=== PATIENT | male | born 1955 | race Caucasian/White ===

== ENCOUNTER 2016-04-05 10:58 | Observation (INO) | payer MEDICARE, MEDICAID ==
[~2016-04-05] VITALS: Ht 165.1 cm; Wt 64.6 kg
[~2016-04-05 10:58] MED LIST: ACET-66 PO; AMLO-512 PO; ASPI-825 PO; CARV12 PO; DiphenhydrAMINE HCL 50 MG/ML VIAL IVP ONE; FentaNYL CITRATE-PF 100 MCG/2 ML VIAL IVP ONE; LIDOCAINE HCL/PF 2% 5 ML VIAL IM ONE; LISI10TA7 PO; OMEP20 PO; PROPOFOL 1% 20 ML VIAL IVP ONE; SIMV20TA6 PO; TEMA30CA PO
[2016-04-05] MEDS ORDERED: SODIUM CHLORIDE 0.9% 1,000 ML IV ONE ×2 (11:08→11:30)
[2016-04-05] MEDS ORDERED: TIMO.5OS OU (11:47)
[2016-04-05] MEDS ORDERED: BIMA12.5OS OU (11:47)
[2016-04-05] MEDS ORDERED: LOPE2 PO (11:50)
[2016-04-05 12:15] LABS: BASOPHILS % (AUTO) 0.6 % (0.0-2.0); EOSINOPHILS % (AUTO) 6.6 % (1.0-6.0); HEMATOCRIT 32.9 % (41-53); HEMOGLOBIN 11.1 g/dL (13.5-17.5); LYMPHOCYTES # (AUTO) 0.5 K/uL (1.0-4.8); LYMPHOCYTES % (AUTO) 9.7 % (22.0-44.0); MEAN CORPUSCULAR HEMOGLOBIN 31.8 pg (26.0-34.0); MEAN CORPUSCULAR HGB CONC 33.8 G/dL (31.0-37.0); MEAN CORPUSCULAR VOLUME 94 fL (80-100); MONOCYTES # (AUTO) 0.4 K/uL (0.1-1.0); MONOCYTES % (AUTO) 9.2 % (2.0-9.0); NEUTROPHILS # (AUTO) 3.5 K/uL (1.8-7.7); NEUTROPHILS % (AUTO) 73.9 % (40.0-70.0); PLATELET COUNT (AUTO) 99 K/uL (150-450); RED CELL DISTRIBUTION WIDTH 16.2 % (11.5-14.5); WHITE BLOOD COUNT (AUTO) 4.7 K/uL (4.5-11.0)
[2016-04-05 12:27] LABS: CALCIUM, TOTAL 8.3 mg/dL (8.8-10.5); CREATININE 4.67 mg/dL (0.60-1.30); MAGNESIUM 2.3 mg/dL (1.80-2.40); POTASSIUM 3.6 mmol/L (3.5-5.1)
[2016-04-05 12:28] LABS: INR 1.4 (0.9-1.1); PROTHROMBIN TIME 14.3 SEC (9.4-11.6)
[2016-04-05] MEDS ORDERED: LIDOCAINE HCL/PF 1% 30 ML VIAL ONE ×2 (14:43→16:11)
[2016-04-05] MEDS ORDERED: SODIUM BICARBONATE 50 MEQ/50 ML VIAL ONE (14:43)
[2016-04-05 15:02] VITALS: BP 118/55
[2016-04-05] MEDS ORDERED: DESMOPRESSIN ACETATE 20 MCG in SODIUM CHLORIDE 0.9% 50 ML IV ONE (16:00)
[2016-04-05] MEDS ORDERED: BUPIVACAINE LIPOSOME/PF 1.3%-13.3MG/ML SUSPENSION 20 ML VIAL INJ ONE (16:15)
[2016-04-05] MEDS ORDERED: LIDOCAINE 1% 30 ML/SOD BICARB 8.4% 4 ML SQ ONE (16:15)
[2016-04-05] MEDS ORDERED: LISI-662 PO (16:24)
[2016-04-05] MEDS ORDERED: ACETAMINOPHEN 325 MG TABLET PO PRN (17:15)
[2016-04-05] MEDS ORDERED: 0.9% SODIUM CHLORIDE 10 ML SYRINGE IVP PRN (17:15)
[2016-04-05] MEDS ORDERED: HYDROCODONE/ACETAMINOPHEN 5-325 MG TABLET PO PRN (17:15)
[2016-04-05 17:21] VITALS: BP 135/67
[2016-04-05 18:23] VITALS: BP 135/60
[2016-04-05 19:10] VITALS: BP 118/78
[2016-04-05] MEDS ORDERED: LISINOPRIL 20 MG TABLET PO SCH (21:00)
[2016-04-05] MEDS: CARVEDILOL 12.5 MG TABLET PO SCH (21:00)
[2016-04-05] MEDS ORDERED: SODIUM CHLORIDE 0.9% 100 ML ONE (21:09)
[2016-04-05] MEDS: CeFAZolin 1 GM/DEXTROSE 50 ML IV SCH (21:18)
[2016-04-06 00:07] VITALS: BP 121/58
[2016-04-06] MEDS: CeFAZolin 1 GM/DEXTROSE 50 ML IV SCH ×2 (03:47→09:33)
[2016-04-06 04:13] VITALS: BP 140/72
[2016-04-06 06:05] LABS: EOSINOPHILS % (AUTO) 5.4 % (1.0-6.0); HEMATOCRIT 30.7 % (41-53); HEMOGLOBIN 10.2 g/dL (13.5-17.5); LYMPHOCYTES # (AUTO) 0.5 K/uL (1.0-4.8); LYMPHOCYTES % (AUTO) 9.8 % (22.0-44.0); MEAN CORPUSCULAR HEMOGLOBIN 31.5 pg (26.0-34.0); MEAN CORPUSCULAR HGB CONC 33.1 G/dL (31.0-37.0); MEAN CORPUSCULAR VOLUME 95 fL (80-100); MONOCYTES # (AUTO) 0.5 K/uL (0.1-1.0); MONOCYTES % (AUTO) 9.6 % (2.0-9.0); NEUTROPHILS # (AUTO) 3.5 K/uL (1.8-7.7); NEUTROPHILS % (AUTO) 74.2 % (40.0-70.0); PLATELET COUNT (AUTO) 93 K/uL (150-450); RED BLOOD CELL COUNT(AUTO) 3.23 MIL/uL (4.50-5.90); WHITE BLOOD COUNT (AUTO) 4.7 K/uL (4.5-11.0)
[2016-04-06 06:27] LABS: CALCIUM, TOTAL 7.9 mg/dL (8.8-10.5); CREATININE 6.06 mg/dL (0.60-1.30); POTASSIUM 3.9 mmol/L (3.5-5.1)
[2016-04-06 07:39] VITALS: BP 172/67
[2016-04-06] MEDS: CARVEDILOL 12.5 MG TABLET PO SCH (08:25)
[2016-04-06] MEDS ORDERED: ASPIRIN 81 MG CHEWABLE TABLET PO SCH (09:00)
[2016-04-06] MEDS ORDERED: OMEPRAZOLE 20 MG CAPSULE PO SCH (09:00)
[2016-04-06] MEDS ORDERED: SIMVASTATIN 20 MG TABLET PO SCH (09:00)
[2016-04-06] MEDS ORDERED: VITAMIN B COMP/VIT C/FOLIC ACID CAPSULE PO SCH (09:00)
[2016-04-06] MEDS ORDERED: LOPERAMIDE HCL 2 MG CAPSULE PO PRN (10:45)
[2016-04-06 11:20] VITALS: BP 146/67
[2016-04-06] MEDS ORDERED: TYL3LL PO (14:39)
== END 2016-04-06 16:00 | disposition home or self-care (01) ==
LOC: CATHLAB 10:58 → 5N 10:59 → INTOOBSV 10:59
PROVIDERS: ADMIT Internal Medicine Clinical Cardiac Electrophysiology; ATTEND Internal Medicine Clinical Cardiac Electrophysiology
DX: I50.22 Chronic systolic (congestive) heart failure (principal); I13.2 Hypertensive heart and chronic kidney disease with heart failure and with stage 5 chronic kidney disease, or end stage renal disease; N18.6 End stage renal disease; E11.22 Type 2 diabetes mellitus with diabetic chronic kidney disease; I47.2 Ventricular tachycardia; E78.5 Hyperlipidemia, unspecified; I25.10 Atherosclerotic heart disease of native coronary artery without angina pectoris; Z99.2 Dependence on renal dialysis
CPT/HCPCS: 33249; 36415 ×2; 71010; 71020; 76000; 80048 ×2; 83735; 85025 ×2; 85610; 85730; 86850; 86900; 86901; 86920; 93005; 96365; 96375; C1721; C1892 ×2; C1899; C9290; G0378 ×2; J0690; J1200; J2597; J2704; J3010; J3490 ×3; J7030; J7050 ×2

== ENCOUNTER 2016-04-11 06:06 | Emergency (ER) | payer MEDICARE, MEDICAID ==
[~2016-04-11] VITALS: Ht 167.6 cm; Wt 65.9 kg
[~2016-04-11 06:06] MED LIST changes: -AMLO-512 PO; +BIMA12.5OS OU; -DiphenhydrAMINE HCL 50 MG/ML VIAL IVP ONE; -FentaNYL CITRATE-PF 100 MCG/2 ML VIAL IVP ONE; -LIDOCAINE HCL/PF 2% 5 ML VIAL IM ONE; +LISI-662 PO; -LISI10TA7 PO; +LOPE2 PO; -PROPOFOL 1% 20 ML VIAL IVP ONE; -TEMA30CA PO; +TIMO.5OS OU; +TYL3LL PO
[2016-04-11 06:21] LABS: GLUCOSE,POINT OF CARE 130 MG/DL (70-110)
[2016-04-11] MEDS ORDERED: ACETAMINOPHEN 325 MG TABLET PO ONE (07:00)
[2016-04-11] MEDS ORDERED: MORPHINE SULFATE 4 MG/ML SYRINGE IVP ONE (07:00)
[2016-04-11] MEDS ORDERED: ONDANSETRON HCL 4 MG/2 ML VIAL IVP ONE (07:00)
[2016-04-11 07:02] LABS: BASOPHILS % (AUTO) 0.3 % (0.0-2.0); EOSINOPHILS % (AUTO) 1.2 % (1.0-6.0); HEMATOCRIT 31.7 % (41-53); HEMOGLOBIN 10.4 g/dL (13.5-17.5); LYMPHOCYTES # (AUTO) 0.3 K/uL (1.0-4.8); LYMPHOCYTES % (AUTO) 3.8 % (22.0-44.0); MEAN CORPUSCULAR HEMOGLOBIN 31.7 pg (26.0-34.0); MEAN CORPUSCULAR HGB CONC 32.7 G/dL (31.0-37.0); MEAN CORPUSCULAR VOLUME 97 fL (80-100); MONOCYTES # (AUTO) 0.5 K/uL (0.1-1.0); MONOCYTES % (AUTO) 6.5 % (2.0-9.0); NEUTROPHILS # (AUTO) 6.6 K/uL (1.8-7.7); PLATELET COUNT (AUTO) 89 K/uL (150-450); RED BLOOD CELL COUNT(AUTO) 3.27 MIL/uL (4.50-5.90); RED CELL DISTRIBUTION WIDTH 17.5 % (11.5-14.5); WHITE BLOOD COUNT (AUTO) 7.5 K/uL (4.5-11.0)
[2016-04-11 07:05] LABS: NEUTROPHILS % (AUTO) 88.2 % (40.0-70.0)
[2016-04-11 07:10] LABS: INR 1.3 (0.9-1.1); PROTHROMBIN TIME 13.6 SEC (9.4-11.6)
[2016-04-11] MEDS ORDERED: BARIUM SULFATE 0.1% SUSPENSION 450 ML BOTTLE PO ONE (07:45)
[2016-04-11 08:42] LABS: CALCIUM, TOTAL 7.6 mg/dL (8.8-10.5); CREATININE 8.72 mg/dL (0.60-1.30); POTASSIUM 4.5 mmol/L (3.5-5.1)
[2016-04-11 08:48] LABS: ALBUMIN 3.6 g/dL (3.4-5.0); BILIRUBIN,TOTAL 3.7 mg/dL (0.1-1.0); TOTAL PROTEIN, SERUM 7.2 g/dL (6.4-8.2)
[2016-04-11 09:17] LABS: RBC MORPHOLOGY COMMENT ABNORMAL RBC MORPH
[2016-04-11 13:00] LABS: GLUCOSE,POINT OF CARE 180 MG/DL (70-110)
[2016-04-11] MEDS ORDERED: TYL3B PO (13:22)
[2016-04-11] MEDS ORDERED: PIPERACILLIN SODIUM/TAZOBACTAM 2.25 GM in DEXTROSE 5%-WATER 50 ML IV ONE (13:30)
[2016-04-11] MEDS ORDERED: DEXTROSE 5%-WATER 250 ML BAG IV ONE (13:47)
[2016-04-11] MEDS ORDERED: EPINEPHrine 1:10,000 [1 MG/10 ML] SYRINGE IVP ONE ×11 (13:47→18:45)
[2016-04-11] MEDS ORDERED: SODIUM BICARBONATE [ADULT] 8.4% 50 MEQ/50 ML SYRINGE IVP ONE ×5 (13:47→18:45)
[2016-04-11] MEDS ORDERED: ADENOSINE 3 MG/ML 2 ML VIAL IVP ONE (13:47)
[2016-04-11] MEDS ORDERED: DEXTROSE 5%-WATER 500 ML BAG IV ONE (13:47)
[2016-04-11] MEDS ORDERED: D5W IV ONE (13:47)
[2016-04-11] MEDS ORDERED: AMIODARONE HCL 50 MG/ML 3 ML VIAL IV ONE (13:47)
[2016-04-11] MEDS ORDERED: LIDOCAINE HCL IV ONE (13:47)
[2016-04-11] MEDS ORDERED: 0.9% SODIUM CHLORIDE 250 ML BAG IV ONE (13:47)
[2016-04-11] MEDS ORDERED: DOPamine HCL/D5W 400 MG/250 ML IV BAG IV ONE (13:47)
[2016-04-11 13:59] LABS: CALCIUM, TOTAL 7.5 mg/dL (8.8-10.5); CREATININE 9.18 mg/dL (0.60-1.30); POTASSIUM 4.8 mmol/L (3.5-5.1)
[2016-04-11 14:00] LABS: GLUCOSE,POINT OF CARE 141 MG/DL (70-110)
[2016-04-11 14:05] LABS: BILIRUBIN,TOTAL 3.1 mg/dL (0.1-1.0); TOTAL PROTEIN, SERUM 6.6 g/dL (6.4-8.2)
[2016-04-11] MEDS ORDERED: MIDAZOLAM HCL 100 MG in DEXTROSE 5%-WATER 180 ML IV PRN (14:15)
[2016-04-11] MEDS ORDERED: VANCOMYCIN HCL 1 GM/D5% WATER 200 ML IV ONE (14:30)
[2016-04-11 14:37] LABS: BASOPHILS % (AUTO) 0.1 % (0.0-2.0); EOSINOPHILS % (AUTO) 0.4 % (1.0-6.0); HEMATOCRIT 33.8 % (41-53); HEMOGLOBIN 11.1 g/dL (13.5-17.5); LYMPHOCYTES # (AUTO) 0.9 K/uL (1.0-4.8); LYMPHOCYTES % (AUTO) 10.4 % (22.0-44.0); MEAN CORPUSCULAR HEMOGLOBIN 31.9 pg (26.0-34.0); MEAN CORPUSCULAR HGB CONC 32.8 G/dL (31.0-37.0); MEAN CORPUSCULAR VOLUME 97 fL (80-100); MONOCYTES % (AUTO) 0.3 % (2.0-9.0); NEUTROPHILS # (AUTO) 7.9 K/uL (1.8-7.7); PLATELET COUNT (AUTO) 66 K/uL (150-450); RED BLOOD CELL COUNT(AUTO) 3.47 MIL/uL (4.50-5.90); RED CELL DISTRIBUTION WIDTH 18.2 % (11.5-14.5); WHITE BLOOD COUNT (AUTO) 8.9 K/uL (4.5-11.0)
[2016-04-11] MEDS ORDERED: SODIUM CHLORIDE 0.9% 500 ML IV ONE (14:49)
[2016-04-11] MEDS ORDERED: NOREPINEPHRINE 4 MG/D5%-WATER 250 ML IV ONE (14:51)
[2016-04-11 14:57] LABS: BILIRUBIN,TOTAL 3.2 mg/dL (0.1-1.0); CREATININE 8.41 mg/dL (0.60-1.30); POTASSIUM 4.6 mmol/L (3.5-5.1); TOTAL PROTEIN, SERUM 6.3 g/dL (6.4-8.2)
[2016-04-11 14:58] LABS: NEUTROPHILS % (AUTO) 88.8 % (40.0-70.0); RBC MORPHOLOGY COMMENT ABNORMAL RBC MORPH
[2016-04-11] MEDS ORDERED: ACETAMINOPHEN 325 MG TABLET PO PRN (15:00)
[2016-04-11] MEDS ORDERED: NOREPINEPHRINE 4 MG/D5%-WATER 250 ML IV PRN (15:00)
[2016-04-11] MEDS ORDERED: BISACODYL 10 MG RECTAL RECTAL SUPPOSITORY PR PRN (15:00)
[2016-04-11 15:06] LABS: CALCIUM, TOTAL 18.2 mg/dL (8.8-10.5)
[2016-04-11] MEDS ORDERED: AMIODARONE HCL 50 MG/ML 3 ML VIAL ONE (15:21)
[2016-04-11] MEDS ORDERED: VANCOMYCIN HCL 1 GM/D5% WATER 200 ML IV PRN (15:30)
[2016-04-11] MEDS ORDERED: EPINEPHrine 1:1,000 [1 MG/ML] AMP ONE (15:51)
[2016-04-11] MEDS ORDERED: EPINEPHrine 1:10,000 [1 MG/10 ML] SYRINGE ONE (15:52)
[2016-04-11] MEDS ORDERED: SODIUM CHLORIDE 0.9% 1,000 ML IV ONE ×2 (16:13→16:15)
[2016-04-11] MEDS ORDERED: AMIODARONE HCL 360 MG in DEXTROSE 5%-WATER 242.8 ML IV ONE (16:15)
[2016-04-11] MEDS ORDERED: AMIODARONE HCL 150 MG in DEXTROSE 5%-WATER 97 ML IV ONE (16:15)
[2016-04-11 16:46] LABS: GLUCOSE,POINT OF CARE 90 MG/DL (70-110)
[2016-04-11 16:48] LABS: ABG BASE EXCESS -11.8 mmol/L (-2.0-3.0); ABG HCO3 14.5 mmol/L (22.0-26.0); ABG OXYHEMOGLOBIN 61.4 % (94.0-100.0); ABG PCO2 59 mmHg (35-45); TEMPERATURE, FAHRENHEIT, BG 98.6 FAHREN (96.0-98.6)
[2016-04-11 17:47] LABS: LACTIC ACID 16.6 mmol/L (0.4-2.0)
[2016-04-11 18:06] LABS: REFLEX LACTIC ACID? YES YES
[2016-04-11] MEDS ORDERED: CALCIUM GLUCONATE 0.465 MEQ/ML 10 ML VIAL IVP ONE (18:45)
[2016-04-11] MEDS ORDERED: AMIODARONE HCL 50 MG/ML 3 ML VIAL IVP ONE (18:45)
[2016-04-11] MEDS ORDERED: DOCUSATE SODIUM 100 MG CAPSULE PO SCH (21:00)
[2016-04-11] MEDS ORDERED: HEPARIN SODIUM,PORCINE 5,000 UNITS/ML VIAL SQ SCH (21:00)
[2016-04-11] MEDS ORDERED: AMIODARONE HCL 540 MG in DEXTROSE 5%-WATER 239.2 ML IV ONE (22:15)
[2016-04-12] MEDS ORDERED: PANTOPRAZOLE SODIUM 40 MG DR TABLET PO SCH (09:00)
[2016-04-12] MEDS ORDERED: AMIODARONE HCL 750 MG in DEXTROSE 5%-WATER 485 ML IV SCH (16:11)
[2016-07-22 11:09] VITALS: BP 114/64
== END 2016-04-11 23:18 | disposition expired ==
LOC: EMS 06:07
DX: I46.9 Cardiac arrest, cause unspecified (principal); E11.9 Type 2 diabetes mellitus without complications; I10 Essential (primary) hypertension; E78.00 Pure hypercholesterolemia, unspecified; Z79.82 Long term (current) use of aspirin
CPT/HCPCS: 31500; 36415; 36556; 71010; 74022; 74176; 76700; 80053; 82805; 82962; 83605; 83690; 84484; 85025; 85610; 87040; 87077; 87186; 92950; 93005; 94002; 96365; 96366; 96368; 96374; 96375; 96376; 99291; 99292; J0153; J0171; J0282; J1265; J2001; J2250; J2270; J2405; J2543; J3370; J3490 ×2; J7030; J7040; J7050; J7060 ×4; J0610